=== PATIENT | female | born 1990 | race Caucasian/White ===

== ENCOUNTER 2018-04-26 22:12 | Emergency (ER) | payer BC ==
[2018-04-27] MEDS: METHOCARBAMOL 750 MG TAB PO (01:19)
[2018-04-27] MEDS: KETOROLAC 30 MG INJ IM (01:19)
== END 2018-04-27 02:25 | disposition home or self-care (01) ==
LOC: FTE 22:12
DX: S46.912A Strain of unspecified muscle, fascia and tendon at shoulder and upper arm level, left arm, initial encounter (principal); E03.9 Hypothyroidism, unspecified; R51 Headache; X58.XXXA Exposure to other specified factors, initial encounter; Y92.9 Unspecified place or not applicable
CPT/HCPCS: 81025; 96372; 99284-25